=== PATIENT | female | born 1980 | race Caucasian/White ===

== ENCOUNTER 2024-07-03 21:02 | Emergency (ER) | payer MEDICAID, SELFPAY ==
[2024-07-03 21:03] VITALS: BP 110/77; PULSE 82; RESP 16; TEMP 37.1; O2SAT 98
--- NOTE | 2024-07-03 21:16 | RAD_ITS ---
INDICATION: FALL EXAMINATION/TECHNIQUE: X-RAY - LEFT XR Foot Min 3 Views 3 VIEWS COMPARISON: FINDINGS: SOFT TISSUES: No soft tissue swelling or gas. No radiopaque foreign body. BONES/JOINTS: No acute fracture or subluxation.. Normal alignment. Preservation of the joint space.. No sclerotic or destructive changes observed. RAD/Foot min 3 Views IMPRESSION: Negative. Electronically Signed: Ibrahima Sy DO at 23:11 EST ,
--- NOTE | 2024-07-03 22:41 | ED.VIS.LOWEX ---
HPI History of Present Illness Chief Complaint: Lower Extremity Injury Informant: patient and spouse/S.O. Narrative Narrative: Inversion injury left foot 1 hour prior to arrival. Going down steps stepping on her son's toy. No falls or head injuries. No paresthesias. Took Advil prior to arrival. Has crutches at home. Has not tried walking on it. PFSH PFS Home Medications ?Medication ?Instructions ?Recorded ?Last Taken ?Type NK 07/03/24 Unknown History Allergy/AdvReac Type Severity Reaction Status Date / Time No Known Allergies Allergy Verified 07/03/24 21:03 Social History Smoking Status: Unknown if ever smoked ROS ROS ED Constitutional Constitutional ED: Denies fever(s) Cardiovascular Cardiovascular: Denies chest pain Respiratory/Chest Respiratory/Chest: Denies cough Gastrointestinal Gastrointestinal: Denies abdominal pain, diarrhea, nausea or vomiting Musculoskeletal Musculoskeletal: Reports extremity pain Integumentary Denies wounds Neurologic Neurologic: Denies paresthesias EXAM Physical Exam Const Vital Signs: 07/03/24 21:03 Temperature 98.7 F Temperature Source Oral Pulse Rate 82 Respiratory Rate 16 Blood Pressure 110/77 Blood Pressure Mean 88 Pulse Ox 98 Oxygen Delivery Method Room Air Positive well nourished and well developed General Appearance ED: well developed and NAD HEENT Reports moist mucous membranes normocephalic and atraumatic Eyes conjunctivae normal General Eye ED: Yes normal appearance of both eyes Neck full ROM Chest Wall Chest: Negative for tenderness Resp normal respiratory effort and normal air movement Effort and Inspection: symmetric chest movement; Negative for respiratory distress Cardio regular rate, regular rhythm and no murmurs Peripheral Pulses: pulses 2+ throughout GI normal to inspection, nondistended, normoactive bowel sounds and non-tender Palpation: Negative for guarding or rebound tenderness present Back/Spine no CVA tenderness and no thoracic nor lumbar tenderness Extremity Extremity Narrative: Left lower extremity no knee or ankle tenderness. There is bruising swelling around the mid foot. No proximal fifth base tenderness. Skin intact. General Extremety ED: Yes tenderness; Negative for edema General Extremity: Negative for edema Neuro oriented x3 and no sensory deficits noted Sensorium / Orientation: awake and alert Skin no rashes or lesions noted and no wounds MDM MDM MDM Narrative Medical decision making narrative: Interventions / MDM: Differential diagnosis: Foot sprain Diagnosis considered but do not suspect: Fracture however x-ray negative My EKG interpretation: N/A Imaging independently reviewed and interpreted by myself: Three-view x-ray left foot: No fracture noted. External documents reviewed: N/A Test considered but not ordered:N/A ED course: Patient status post Advil at home. Ice was placed. X-ray obtained. Results were negative. Ramiro wrap provided. She has crutches at home. She will continue ibuprofen 600 mg every 6 hours. She continues to ice. Outpatient follow-up. All questions were answered. Re-evaluation: stable Disposition discussed with patient/family/significant other: Patient significant other Case discussed with consulting clinician: N/A This note was generated with [employer] dictation software. It may contain incorrect words, spelling, and punctuation that were not noted in checking the note before signing. Radiography Diagnostic Testing: Clinical Impression(s) from Imaging Studies Foot X-Ray 07/03/24 21:16 IMPRESSION: Negative. Electronically Signed: Ibrahima Sy DO at 23:11 EST Reading Location ID and State: [facility] / [place] Tel [phone], Service support , Discharge Plan Triage Chief Complaint: Lower Extremity Injury ED Provider: Julius Calles Dx/Rx/DC Orders Clinical Impression: Sprain of left foot, Injury of foot, left Instructions: ED Foot Sprain Prescriptions: No Action NK Primary Care Provider: Care Physician,No Primary Activity Restrictions/Additional Instructions: X-ray negative for fracture. Ramiro wrap for support. Continue ice. Continue Advil up to 600 mg every 6 hours as needed. Use your crutches at home as needed. Follow-up with your doctor. Print Language: Moroccan Disposition Disposition: Home, Self Care Discharge Date/Time: 07/03/24 22:52
== END 2024-07-03 22:52 | disposition home or self-care (01) ==
PROVIDERS: Emergency Provider Emergency Medicine; Referring Provider Emergency Medicine; Visit Provider Emergency Medicine
DX: S93.602A Unspecified sprain of left foot, initial encounter (principal); X58.XXXA Exposure to other specified factors, initial encounter
CPT/HCPCS: 73630; 99282

== ENCOUNTER 2025-07-26 10:29 | Emergency (ER) | payer SELFPAY ==
[2025-07-26 10:30] VITALS: BP 128/117; PULSE 86; RESP 16; TEMP 36.4; O2SAT 99; BMI 31.0
[2025-07-26] MEDS: 0.9% Normal Saline (1000mL) 1,000 ML 999 ML IV (10:46)
--- NOTE | 2025-07-26 10:46 | EX.ED.DYSGE1 ---
HPI History of Present Illness Chief Complaint: Nausea/Vomiting/Diarrhea Informant: patient and spouse/S.O. Narrative Narrative: 45-year-old female presenting to the emergency room with a chief complaint of vomiting diarrhea. Patient states she is on day 6 of her illness. She states that most family members have had 24 hours or so of vomiting diarrhea and then they improve. States that she continues to have symptoms particularly in the mornings. She states she has been trying to drink plenty of fluids and has been urinating. No reported fevers or rashes. She describes the diarrhea as green and brown liquidy. No blood in vomit or stool. She states that this morning she continues to have symptoms and feels globally weak. She denies any recent travel. No known bad food exposures. No recent antibiotics. She denies any abdominal surgeries. She currently takes no medications. PFSH PFSH Home Medications ?Medication ?Instructions ?Recorded ?Last Taken ?Type ciprofloxacin HCl 500 mg tablet 500 mg PO BID #10 TABLETS 07/26/25 Unknown Rx ondansetron 4 mg disintegrating 4 mg PO Q6H PRN PRN Nausea #15 tabs 07/26/25 Unknown Rx tablet Allergy/AdvReac Type Severity Reaction Status Date / Time No Known Allergies Allergy Verified 07/26/25 10:31 Social History Smoking Status: Current every day smoker tobacco type: cigarettes ROS ROS ED ROS Narrative Generalized weakness Constitutional Constitutional ED: Denies chills, fever(s) or weight loss Eyes Eyes: Denies change in vision or diplopia ENT ENT ED: Denies ear pain, rhinorrhea or sore throat Cardiovascular Cardiovascular: Denies chest pain, orthopnea, palpitations or racing heartbeat Respiratory/Chest Respiratory/Chest: Denies cough, dyspnea or orthopnea Gastrointestinal Gastrointestinal: Reports diarrhea, nausea, vomiting and other Details: Abdominal cramping Genitourinary Genitourinary ED: Denies dysuria, hematuria or urinary frequency Musculoskeletal Musculoskeletal: Denies arthralgias or myalgias Integumentary Denies abscess or rash Neurologic Neurologic: Denies headache(s) or weakness Psychiatric Psychiatric: Denies anxiety, depression, suicidal ideation or suicidal thoughts Endocrine Endocrinology: Denies polydipsia, polyphagia or polyuria Allergic/Immunologic Allergic/Immunologic ED: Denies mouth swelling, tongue swelling or urticaria EXAM Physical Exam Const Vital Signs: 07/26/25 10:30 07/26/25 11:30 07/26/25 13:52 Temperature 97.6 F L Temperature Source Temporal Pulse Rate 86 64 Respiratory Rate 16 18 Blood Pressure 128/117 H 128/76 H 123/78 H Blood Pressure Mean 120 93 93 Pulse Ox 99 98 Oxygen Delivery Method Room Air Room Air 07/26/25 13:52 Temperature 98.7 F Temperature Source Pulse Rate 97 Respiratory Rate 18 Blood Pressure 134/78 H Blood Pressure Mean 96 Pulse Ox 99 Oxygen Delivery Method Positive well nourished and well developed General Appearance ED: well developed and NAD HEENT Reports normocephalic, head/scalp atraumatic and moist mucous membranes Eyes PERRL and EOMs intact bilaterally Neck no lymphadenopathy, supple and no JVD Resp normal respiratory effort and clear to auscultation bilaterally Cardio regular rate, regular rhythm and no murmurs GI GI Narrative: Mild tenderness to palpation diffusely in the abdomen without guarding or rebound. The abdomen is soft. Hyperactive bowel sounds are heard Inspection: Negative for abdominal distention Auscultation: hyperactive bowel sounds Palpation: soft and tender; Negative for guarding or rebound tenderness present Back/Spine no CVA tenderness and normal ROM Extremity normal to inspection General Extremety ED: Negative for edema General Extremity: Negative for edema Neuro oriented x3 and CN's II-XII intact bilaterally Sensorium / Orientation: alert Motor Exam: strength 5/5 throughout Psych Mood & Affect: tearful; Negative for depressed Skin no rashes or lesions noted and no wounds MDM MDM MDM Narrative Medical decision making narrative: Differential diagnosis includes but not limited to gastroenteritis colitis dehydration electrolyte abnormalities acute kidney injury hepatitis Basic blood work is obtained shows a white count of 11 hemoglobin 14.9 platelet count of 299 creatinine 0.93. AST is 35 ALT of 37 lipase 29 test negative. Patient received IV fluids and Zofran. She was able to produce a stool specimen. This is positive for fecal leukocytes. Enteric pathogen panel will not be run during the patient's ED stay. Patient is doing overall better. I will write for Zofran to muscle and place her on ciprofloxacin for the next 5 days. Patient to return if worsening or concerns encouraged oral hydration History & Record Review Discussion w/independent historian: Patient and Family Lab Data Attestation: I reviewed the patient's lab results. Labs: Laboratory Results - last 24 hr 07/26/25 10:45 WBC 11.0 RBC 4.83 Hgb 14.9 Hct 44.6 MCV 92.3 MCH 30.8 MCHC 33.4 RDW Std Deviation 45.9 H RDW Coeff of Ileana 13.5 Plt Count 299 MPV 8.9 Immature Gran % (Auto) 0.400 Neut % (Auto) 68.0 Lymph % (Auto) 20.4 Davison % (Auto) 5.4 Eos % (Auto) 5.4 H Baso % (Auto) 0.4 Absolute Neuts (auto) 7.5 Absolute Lymphs (auto) 2.25 Nucleated RBC % 0 Sodium 141 Potassium 4.5 Chloride 108 H Carbon Dioxide 24.7 Anion Gap 9 BUN 11 Creatinine 0.93 Estim Creat Clear Calc 79.18 Est GFR (MDRD) Non-Af 77 BUN/Creatinine Ratio 11.5 Glucose 111 H Calcium 9.2 Total Bilirubin 0.16 Direct Bilirubin < 0.08 AST 35 H ALT 37 H Alkaline Phosphatase 65 Total Protein 6.9 Albumin 4.3 Globulin 2.7 Lipase 29 Serum , Qual NEGATIVE Discharge Plan Triage Chief Complaint: Nausea/Vomiting/Diarrhea ED Provider: Chace Espinal Dx/Rx/DC Orders Clinical Impression: Gastroenteritis Instructions: Self-Care for Vomiting and Diarrhea Prescriptions: New ciprofloxacin HCl 500 mg tablet 500 mg PO BID Qty: 10 0RF ondansetron 4 mg tablet,disintegrating 4 mg PO Q6H PRN PRN (Reason: Nausea) Qty: 15 0RF Primary Care Provider: Care Physician,No Primary Referrals: Care Physician,No Primary [Primary Care Provider, Medical] Print Language: Zimbabwean Disposition Disposition: Home, Self Care Discharge Date/Time: 07/26/25 13:53
[2025-07-26 10:55] LABS: Hematocrit 44.6 % (37-47); Hemoglobin 14.9 g/dL (12.0-15.0); Immature Granulocytes Count 0.040 X10^3/uL (0.0-0.0); Mean Corp Hgb Conc 33.4 g/dL (32-36); Mean Corpuscular Volume 92.3 fL (81-99); Mean Platelet Vol. 8.9 fl (6.2-12.0); NRBC Flagged by Analyzer 0 % (0-5); Platelet Count 299 K/mm3 (150-450); RBC Distribution Width CV 13.5 % (11.6-14.6); RBC Distribution Width SD 45.9 fl (35.1-43.9); Red Blood Count 4.83 M/mm3 (4.2-5.4); White Blood Count 11.0 K/mm3 (4.4-11.0)
--- OUTSIDE RECORDS SUMMARY | 2025-07-26 11:04 | XMS RPT_ITS | CCD ---
Author Organization [facility] Inform ion [facility] Care Team Providers Care Emergency Vehicle Operations Instructor Name Role Phone Unavailable Primary Care Provider Julius Sotelo Referring Unavailable Julius Calles Attending Unavailable Care Physician, No Primary Primary Care Unava ilable Medications Current Medications Medication Drug Class(es) Dates Sig (Normalized) Sig (Original) benzonatate 100 mg oral capsule (1 source) Non-narcotic Antitussive Start: 06-21-2024 End: 06-28-2024 take 1 capsule by mouth every eight hours as needed benzonatate (TESSALON PERLE) 100 mg capsule Take 1 capsule by mouth three times a day as needed for cough for up to 7 days. 21 capsule 06/21/2024 06/28/2024 Active Problems Problem Classification Problem Date Documented Da te Episodic/Chronic Other lower respiratory disease (1 source) Cough; Translations: [Acute cough] 06-21-2024 Episodic Other upper respiratory infections (1 source) Upper respiratory infection; Translations: [Acute upper respiratory infection, unspecified] 06-21-2024 Episodic Sprains and strains (1 source) Unspecified sprain of left foot, initial encounter; Translations: [Unspecified sprain of left foot, initial encounter] Onset: 07-29-2024 Episodic Results Test Name Value Interpretation Reference Range Facil ity Emergency Department Summary on 07-03-2024 Emergency Department Summary [facility] Medical Records Department [address] [place] [address] Emergency Department Summary 07/03/24 MR#: [id number] Acct: [id number] Name: KRISS TJEADA Rep #: [id number] : 1980 44 From: Julius Shelby PCP: Care Physician,No Primary Status:DEP ER Location: ED HPI History of Present Illness Chief Complaint: Lower Extremity Injury Informant: patient and spouse/S.O. Narrative Narrative: Inversion injury left foot 1 hour prior to arrival. Going down steps stepping on her son's toy. No falls or head injuries. No paresthesias. Took Advil prior to arrival. Has crutches at home. Has not tried walking on it. PFSH PFSH Home Medications ???Medication ???Instructions ???Recorded ???Last Taken ???Type NK 07/03/24 Unknown History Allergy/AdvReac Type Severity Reaction Status Date / Time No Known Allergies Allergy Verified 07/03/24 21:03 Social History Smoking Status: Unknown if ever smoked ROS ROS ED Constitutional Constitutional ED: Denies fever(s) Cardiovascular Cardiovascular: Denies chest pain Respiratory/Chest Respiratory/Chest: Denies cough Gastrointestinal Gastrointestinal: Denies abdominal pain, diarrhea, nausea or vomiting Musculoskeletal Musculoskeletal: Reports extremity pain Integumentary Denies wounds Neurologic Neurologic: Denies paresthesias EXAM Physical Exam Const Vital Signs: 07/03/24 21:03 Temperature 98.7 F Temperature Source Oral Pulse Rate 82 Respiratory Rate 16 Blood Pressure 110/77 Blood Pressure Mean 88 Pulse Ox 98 Oxygen Delivery Method Room Air Positive well nourished and well developed General Appearance ED: well developed and NAD HEENT Reports moist mucous membranes normocephalic and atraumatic Eyes conjunctivae normal General Eye ED: Yes normal appearance of both eyes Neck full ROM Chest Wall Chest: Negative for tenderness Resp normal respiratory effort and normal air movement Effort and Inspection: symmetric chest movement; Negative for respiratory distress Cardio regular rate, regular rhythm and no murmurs Peripheral Pulses: pulses 2+ throughout GI normal to inspection, nondistended, normoactive bowel sounds and non-tender Palpation: Negative for guarding or rebound tenderness present Back/Spine no CVA tenderness and no thoracic nor lumbar tenderness Extremity Extremity Narrative: Left lower extremity no knee or ankle tenderness. There is bruising swelling around the mid foot. No proximal fifth base tenderness. Skin intact. General Extremety ED: Yes tenderness; Negative for edema General Extremity: Negative for edema Neuro oriented x3 and no sensory deficits noted Sensorium / Orientation: awake and alert Skin no rashes or lesions noted and no wounds MDM MDM MDM Narrative Medical decision making narrative: Interventions / MDM: Differential diagnosis: Foot sprain Diagnosis considered but do not suspect: Fracture however x-ray negative My EKG interpretation: N/A Imaging independently reviewed and interpreted by myself: Three-view x-ray left foot: No fracture noted. External documents reviewed: N/A Test considered but not ordered:N/A ED course: Patient status post Advil at home. Ice was placed. X-ray obtained. Results were negative. Ramiro wrap provided. She has crutches at home. She will continue ibuprofen 600 mg every 6 hours. She continues to ice. Outpatient follow-up. All questions were answered. Re-evaluation: stable Disposition discussed with patient/family/signi ficant other: Patient significant other Case discussed with consulting clinician: N/A This note was generated with Cloudadmin dictation software. It may contain incorrect words, spelling, and punctuation that were not noted in checking the note before signing. Radiography Diagnostic Testing: Clinical Impression(s) from Imaging Studies Foot X-Ray 07/03/24 21:16 IMPRESSION: Negative. Electronically Signed: Ibrahima Sy DO at 23:11 EST Reading Location ID and State: [facility] / [place] Tel [phone], Service support , Discharge Plan Triage Chief Complaint: Lower Extremity Injury ED Provider: Julius Calles Dx/Rx/DC Orders Clinical Impression: Sprain of left foot, Injury of foot, left Instructions: ED Foot Sprain Prescriptions: No Action NK Primary Care Provider: Care Physician,No Primary Activity Restrictions/Additio nal Instructions: X-ray negative for fracture. Ramiro wrap for support. Continue ice. Continue Advil up to 600 mg every 6 hours as needed. Use your crutches at home as needed. Follow-up with your doctor. Print Language: Kyrgyz Disposition Disposition: Home, Self Care Discharge (more content not included)... Normal [facility] Foot min 3 Viewson 4 Foot min 3 Views [facility] Imaging Services [address] [place], [place] [id number] Foot min 3 Views MR#: [id number] Acct: [id number] Name: KRISS TEJADA Rep #: [id number] : 1980 F 44 From: Ibrahima Sy DO PCP: Care Physician,No Primary Status: DEP ER Study: Foot min 3 Views Date of Exam: 07/03/24 Exam# [id number] Ordering Dr: Julius Calles DO [id number] INDICATION: FALL EXAMINATION/TECHNIQU E: X-RAY - LEFT XR Foot Min 3 Views 3 VIEWS COMPARISON: ____ FINDINGS: SOFT TISSUES: No soft tissue swelling or gas. No radiopaque foreign body. BONES/JOINTS: No acute fracture or subluxation.. Normal alignment. Preservation of the joint space.. No sclerotic or destructive changes observed. RAD/Foot min 3 Views IMPRESSION: Negative. Electronically Signed: Ibrahima Sy DO at 23:11 EST , CC: Dr. Julius Calles DO; No Primary Care Physician Hot Dip Tinning Supervisor: Signed Normal [facility] CNOVon 06-21-2024 CNOV Office Visit (UCWSTR) KRISS TEJADA ([id number]) 1980 F Date Time Provider Department 06/21/24 1:30 PM BERNARD IBRAHIM [facility] During your visit today, we recorded the following information about you: Temperature Pulse Respiration Blood pressure 97.2 degrees 96/minute 18/minute 102/66 Weight 61.5 kg Bernard Ibrahim APRN.CONTINUOUS WASHER OPERATOR 06/21/2024 1:37 PM Signed Subjective HPI Nontoxic-appearing female presents urgent care chief complaint cough chest congestion fatigue body aches chills. Duration of symptoms 3 days. Associated symptoms listed above. Most prominent symptom today is cough and fatigue. OTC medications none recently. Sick contacts unknown. No chest pain shortness of breath or hemoptysis. Past medical history prescription medications allergies reviewed. Denies chance of . Is not breast-feeding. .Patient presents with: Cough: chest and head congestion, fatigue, bodyaches and chills x 3 days History reviewed. No pertinent past medical history. History reviewed. No pertinent surgical history. ALLERGIES Patient has no known allergies. MEDICATIONS No prescriptions on file. History reviewed. No pertinent family history. BP 102/66 Pulse 96 Temp 36.2 ?C (97.2 ?F) Resp 18 Wt 61.5 kg (135 lb 9.3 oz) SpO2 98% Review of Systems Constitutional: Positive for malaise/fatigue. Negative for chills and fever. HENT: Positive for congestion and sore throat. Negative for ear discharge, ear pain and sinus pain. Eyes: Negative for blurred vision, pain, discharge and redness. Respiratory: Positive for cough. Negative for hemoptysis, sputum production, shortness of breath, wheezing and stridor. Cardiovascular: Negative for chest pain. Gastrointestinal: Negative for abdominal pain, diarrhea, nausea and vomiting. Musculoskeletal: Positive for myalgias. Skin: Negative for itching and rash. Neurological: Positive for headaches. Negative for dizziness. Objective Physical Exam Constitutional: General: She is not in acute distress. Appearance: She is not diaphoretic. HENT: Head: Normocephalic. Jaw: No trismus, tenderness, swelling or pain on movement. Nose: Congestion present. Mouth/Throat: Mouth: Mucous membranes are moist. Pharynx: Oropharynx is clear. Uvula midline. No pharyngeal swelling, oropharyngeal exudate, posterior oropharyngeal erythema or uvula swelling. Eyes: Conjunctiva/sclera: Conjunctivae normal. Pupils: Pupils are equal, round, and reactive to light. Cardiovascular: Rate and Rhythm: Normal rate and regular rhythm. Heart sounds: Normal heart sounds. Pulmonary: Effort: Pulmonary effort is normal. No tachypnea, accessory muscle usage or respiratory distress. Breath sounds: Normal breath sounds. No stridor. No wheezing, rhonchi or rales. Abdominal: General: There is no distension. Palpations: Abdomen is soft. Tenderness: There is no abdominal tenderness. There is no guarding or rebound. Musculoskeletal: Cervical back: Normal range of motion and neck supple. No edema, erythema, rigidity or tenderness. No pain with movement. Normal range of motion. Lymphadenopathy: Cervical: No cervical adenopathy. Skin: General: Skin is warm and dry. Neurological: Mental Status: She is alert and oriented to person, place, and time. ASSESSMENT/PLAN: 1. Acute cough - ICD9: 786.2, ICD10: R05.1 (primary diagnosis) - XR CHEST 2V FRONTAL/LAT 2. URI with cough and congestion - ICD9: 465.9, ICD10: J06.9 - Discussed viral etiology and rationale for treatment. - Symptomatic treatment with prn analgesia - Supportive care with fluids and rest Patient was educated on supportive therapies. Patient will follow up with primary care provider as needed. Patient was instructed to immediately proceed to emergency room for any new, worsening, or symptoms lasting longer than anticipated. The patient's clinical presentation is otherwise unremarkable at this time. Based on exam and clinical finding, the patient is stable for discharge. Plan of care was discussed with patient. Patient verbalizes understanding and agrees to plan of care. This note was generated using Cloudadmin software. It may contain errors in wording, punctuation, or spelling. Bernard Ibrahim APRN.CONTINUOUS WASHER OPERATOR Allergies As of Date: 06/21/2024 (No Known Allergies) Date Reviewed: 06/21/2024 Reviewed by: Bernard Ibrahim APRN.CONTINUOUS WASHER OPERATOR - Fully Assessed Reason for Visit: Cough [28] Cmt: chest and head congestion, fatigue, bodyaches and chills x 3 days Primary Visit Diagnosis:Acute cough [R05.1] Other Visit Diagnosis:URI with cough and congestion [J06.9] Order(s):XR CHEST 2V FRONTAL/LAT [[id number]] Order #: [id number] FUTURE benzonatate (TESSALON PERLE) 100 mg capsuleTake 1 capsule by mouth three times a day as needed for cough for up to 7 days.Disp: 21 capsuleRfl: 0 Prescriptions as of (more content not included)... Normal [facility] .Auto Diffon 02-17-2021 Basophil, Absolute 0.10 10 3/mcL Normal 0.00-0.27 [facility] ([place]) Comment on above: Performed By: #### L IPID, ADIFF, BMP, CBC, ANEU, TSH, GFR #### [address] [address] Basophils/100 WBC (Bld) 1.0 % Normal 0.0-2.5 [facility] ([place]) Comment on above: Performed By: #### L IPID, ADIFF, BMP, CBC, ANEU, TSH, GFR #### [address] [address] Eosinophil, Absolute 0.10 10 3/mcL Normal 0.00-0.65 [facility] ([place]) Comment on above: Performed By: #### L IPID, ADIFF, BMP, CBC, ANEU, TSH, GFR #### [address] [address] Eosinophils/100 WBC (Bld) 1.1 % Normal 0.0-6.0 [facility] ([place]) Comment on above: Performed By: #### L IPID, ADIFF, BMP, CBC, ANEU, TSH, GFR #### [address] [address] Lymphocyte, Absolute 2.30 10 3/mcL Normal 0.90-4.32 [facility] ([place]) Comment on above: Performed By: #### L IPID, ADIFF, BMP, CBC, ANEU, TSH, GFR #### [address] [address] Lymphocytes/100 WBC (Bld) 24.8 % Normal 20.0-40.0 [facility] ([place]) Comment on above: Performed By: #### L IPID, ADIFF, BMP, CBC, ANEU, TSH, GFR #### [address] [address] Monocyte, Absolute 0.50 10 3/mcL Normal 0.09-1.40 [facility] ([place]) Comment on above: Performed By: #### L IPID, ADIFF, BMP, CBC, ANEU, TSH, GFR #### [address] [address] Monocytes/100 WBC (Bld) 5.8 % Normal 2.0-13.0 [facility] ([place]) Comment on above: Performed By: #### L IPID, ADIFF, BMP, CBC, ANEU, TSH, GFR #### [address] [address] Neutrophils/100 WBC (Bld) 67.3 % Normal 50.0-75.0 [facility] ([place]) Comment on above: Performed By: #### L IPID, ADIFF, BMP, CBC, ANEU, TSH, GFR #### [address] [address] .GFRon 02-17-2021 GFR >60 Normal [facility] ([place]) Comment on above: Result Comment: GFR Population mean for , Non- Americans Ages 20-29 = 116 mL/min/1.73 sq.m. Ages 30-39 = 107 mL/min/1.73 sq.m. Ages 40-49 = 99 mL/min/1.73 sq.m. Ages 50-59 = 93 mL/min/1.73 sq.m. Ages 60-69 = 85 mL/min/1.73 sq.m. Ages 70+ = 75 mL/min/1.73 sq.m. Chronic Kidney Disease: Less than 60 mL/min/1.73 square meters End Stage Renal Disease: Less than 15 mL/min/1.73 square meters Performed By: #### L IPID, ADIFF, BMP, CBC, ANEU, TSH, GFR #### [address] [address] GFR Non- 59 ml/min/1.73sqm Normal [facility] ([place]) Comment on above: Result Comment: GFR Population mean for , Non- Americans Ages 20-29 = 116 mL/min/1.73 sq.m. Ages 30-39 = 107 mL/min/1.73 sq.m. Ages 40-49 = 99 mL/min/1.73 sq.m. Ages 50-59 = 93 mL/min/1.73 sq.m. Ages 60-69 = 85 mL/min/1.73 sq.m. Ages 70+ = 75 mL/min/1.73 sq.m. Chronic Kidney Disease: Less than 60 mL/min/1.73 square meters End Stage Renal Disease: Less than 15 mL/min/1.73 square meters Performed By: #### L IPID, ADIFF, BMP, CBC, ANEU, TSH, GFR #### [address] [address] .NEUABSon 02-17-2021 Neutrophil, Absolute 6.20 10 3/mcL Normal 2.25-8.10 [facility] ([place]) Comment on above: Performed By: #### L IPID, ADIFF, BMP, CBC, ANEU, TSH, GFR #### [place] [id number] BMPon 02-17-2021 BUN/Creatinine Ratio 12.6 ratio Normal 10.0-22.0 [facility] ([place]) Comment on above: Performed By: #### L IPID, ADIFF, BMP, CBC, ANEU, TSH, GFR #### [place] [address] Calcium [Mass/Vol] 9.7 mg/dL Normal 8.7-10.4 [facility] ([place]) Comment on above: Result Comment: No te - New Reference Range in effect 20 Performed By: #### L IPID, ADIFF, BMP, CBC, ANEU, TSH, GFR #### [place] [address] Chloride [Moles/Vol] 110 mmol/L Normal 98-110 [facility] ([place]) Comment on above: Performed By: #### L IPID, ADIFF, BMP, CBC, ANEU, TSH, GFR #### [address] [address] CO2 [Moles/Vol] 28 mmol/L Normal 22-32 [facility] ([place]) Comment on above: Performed By: #### L IPID, ADIFF, BMP, CBC, ANEU, TSH, GFR #### [place] [id number] Creatinine [Mass/Vol] 1.03 mg/dL Normal 0.50-1.20 [facility] ([place]) Comment on above: Performed By: #### L IPID, ADIFF, BMP, CBC, ANEU, TSH, GFR #### [address] [address] Electrolyte Balance 4.0 mEq/L Normal 4.0-15.0 [facility] ([place]) Comment on above: Performed By: #### L IPID, ADIFF, BMP, CBC, ANEU, TSH, GFR #### [place] [id number] Glucose [Mass/Vol] 87 mg/dL Normal 70-110 [facility] ([place]) Comment on above: Performed By: #### L IPID, ADIFF, BMP, CBC, ANEU, TSH, GFR #### [place] [id number] Potassium [Moles/Vol] 4.0 mmol/L Normal 3.5-5.0 [facility] ([place]) Comment on above: Result Comment: Spec imen slightly hemolyzed. Performed By: #### L IPID, ADIFF, BMP, CBC, ANEU, TSH, GFR #### [place] [id number] Sodium [Moles/Vol] 142 mmol/L Normal 136-145 [facility] ([place]) Comment on above: Performed By: #### L IPID, ADIFF, BMP, CBC, ANEU, TSH, GFR #### [place] [id number] Urea nitrogen [Mass/Vol] 13.0 mg/dL Normal 8.0-22.0 [facility] ([place]) Comment on above: Performed By: #### L IPID, ADIFF, BMP, CBC, ANEU, TSH, GFR #### [place] [id number] CBCon 02-17-2021 Erythrocyte distribution width (RBC) [Ratio] 14.2 % Normal 11.5-15.5 [facility] ([place]) Comment on above: Performed By: #### L IPID, ADIFF, BMP, CBC, ANEU, TSH, GFR #### [place] [address] Hematocrit (Bld) [Volume fraction] 38.9 % Normal 34.0-46.0 [facility] ([place]) Comment on above: Performed By: #### L IPID, ADIFF, BMP, CBC, ANEU, TSH, GFR #### [place] [address] Hgb 13.2 G/dL Normal 12.0-16.0 [facility] ([place]) Comment on above: Performed By: #### L IPID, ADIFF, BMP, CBC, ANEU, TSH, GFR #### [place] [address] MCH (RBC) [Entitic mass] 31.1 pg Normal 27.0-33.0 [facility] ([place]) Comment on above: Performed By: #### L IPID, ADIFF, BMP, CBC, ANEU, TSH, GFR #### [place] [address] MCHC 33.9 G/dL Normal 32.0-36.0 [facility] ([place]) Comment on above: Performed By: #### L IPID, ADIFF, BMP, CBC, ANEU, TSH, GFR #### [place] [address] MCV (RBC) [Entitic vol] 91.7 fL Normal 80.0-99.0 [facility] ([place]) Comment on above: Performed By: #### L IPID, ADIFF, BMP, CBC, ANEU, TSH, GFR #### [place] [address] Platelet 285 10 3/mcL Normal 150-450 [facility] ([place]) Comment on above: Performed By: #### L IPID, ADIFF, BMP, CBC, ANEU, TSH, GFR #### [place] [address] Platelet mean volume (Bld) [Entitic vol] 8.7 fL Normal 6.6-10.5 [facility] ([place]) Comment on above: Performed By: #### L IPID, ADIFF, BMP, CBC, ANEU, TSH, GFR #### [address] [address] RBC 4.25 10 6/mcL Normal 4.10-5.30 [facility] ([place]) Comment on above: Performed By: #### L IPID, ADIFF, BMP, CBC, ANEU, TSH, GFR #### [place] [id number] WBC 9.20 10 3/mcL Normal 4.50-10.80 [facility] ([place]) Comment on above: Performed By: #### L IPID, ADIFF, BMP, CBC, ANEU, TSH, GFR #### [place] [address] LIPIDon 02-17-2021 Cholesterol [Mass/Vol] 172 mg/dL Normal 50-199 [facility] ([place]) Comment on above: Result Comment: Chol esterol Reference Interval: Less than 200 Desirable 200-239 Borderline high risk 240 and above High risk Performed By: #### L IPID, ADIFF, BMP, CBC, ANEU, TSH, GFR #### [place] [address] Cholesterol in HDL [Mass/Vol] 54 mg/dL Normal 40-59 [facility] ([place]) Comment on above: Performed By: #### L IPID, ADIFF, BMP, CBC, ANEU, TSH, GFR #### [place] [address] Cholesterol in LDL [Mass/Vol] 108 mg/dL Normal 0-129 [facility] ([place]) Comment on above: Performed By: #### L IPID, ADIFF, BMP, CBC, ANEU, TSH, GFR #### [place] [address] Triglyceride [Mass/Vol] 48 mg/dL Normal 3-149 [facility] ([place]) Comment on above: Performed By: #### L IPID, ADIFF, BMP, CBC, ANEU, TSH, GFR #### [address] [address] TSHon 02-17-2021 TSH 0.929 mIU/mL Normal 0.550-4.780 [facility] ([place]) Comment on above: Result Comment: No te - New Reference Range in effect 20 Performed By: #### L IPID, ADIFF, BMP, CBC, ANEU, TSH, GFR #### [facility] [address] [place] [address] Vital Signs Date Time Vital Sign Value Performing Clinician Jesus travis 06-21-2024 13:25-0500 Body temperature 97.2 [degF] Bernard Ibarhim TEXTILE CLOTHING AND FOOTWEAR MECHANIC.CONTINUOUS WASHER OPERATOR Work Phone: [facility] 06-21-2024 13:25-0500 Body weight 61.5 kg Bernardroland Ibrahim TEXTILE CLOTHING AND FOOTWEAR MECHANIC.CONTINUOUS WASHER OPERATOR Work Phone: [facility] 06-21-2024 13:25-0500 Diastolic blood pressure 66 mm[Hg] Bernard Ibrahim TEXTILE CLOTHING AND FOOTWEAR MECHANIC.CONTINUOUS WASHER OPERATOR Work Phone: [facility] 06-21-2024 13:25-0500 Heart rate 96 /min Bernard Ibrahim TEXTILE CLOTHING AND FOOTWEAR MECHANIC.CONTINUOUS WASHER OPERATOR Work Phone: [facility] 06-21-2024 13:25-0500 Respiratory rate 18 /min Bernardroland Ibrahim TEXTILE CLOTHING AND FOOTWEAR MECHANIC.CONTINUOUS WASHER OPERATOR Work Phone: [facility] 06-21-2024 13:25-0500 SaO2% (BldA) [Mass fraction] 98 % Bernard Ibrahim TEXTILE CLOTHING AND FOOTWEAR MECHANIC.CONTINUOUS WASHER OPERATOR Work Phone: [facility] 06-21-2024 13:25-0500 Systolic blood pressure 102 mm[Hg] Bernard Ibrahim TEXTILE CLOTHING AND FOOTWEAR MECHANIC.CONTINUOUS WASHER OPERATOR Work Phone: [facility] Encounters Encounter Date Encounter Type Care Provider Facility Start: 07-03-2024 End: 07-03-2024 Emergency department patient visit Julius Calles Facility:[facility] Start: 06-21-2024 End: 06-21-2024 ambulatory Facility:[facility] Start: 06-21-2024 End: 06-21-2024 Office outpatient new 20 minutes Bernard Ibrahim TEXTILE CLOTHING AND FOOTWEAR MECHANIC.CONTINUOUS WASHER OPERATOR Work Phone: [facility] Comment on above: Acute cough (Primary Dx); URI with cough and congestion Plan of Treatment Date Care Activity Detail Author Start: 06-28-2024 End: 07-21-2025 XR Chest PA and Lateral XR CHEST 2V FRONTAL/LAT Radiology STAT Acute cough Expected: 06/28/2024, Expires: 07/21/2025 [facility] Work Phone: Comment on above: Expected: 06/28/2024 , Expires: 07/21/2025 Start: 03-30-2024 Covid-19 Vaccine ( season) Covid-19 Vaccine ( season) [facility] Start: 03-30-2024 Influenza vaccination Influenza Vacc ine (#1) [facility] Start: 2020 Screening for malign ant neoplasm of breast Mammogram Screening [facility] Start: 2001 Screening for malign ant neoplasm of cervix Cervical Cancer Screening [facility] Start: 1999 Hepatitis B Vaccine (1 of 3 - 19+ 3-dose series) Hepatitis B Vaccine (1 of 3 - 19+ 3-dose series) [facility] Start: 1999 Urine microalbumin profile DTaP,Tdap,Td Vaccine (1 - Tdap) [facility] Start: 1998 Anxiety Screening Anxiety Screening [facility] Start: 1998 Depression Screening Depression Scre ening [facility] Start: 1998 Hepatitis C screening Hepatitis C Sc reening [facility] Start: 1998 HIV screening HIV Screening [facility] Payers Date Payer Category Payer Self-pay 2024 Unknown [id number] 2024 Medicaid [place] [employer] [employer] [id number] 2024-Present [phone] [address] [place] [address] Medicaid [id number] 2024 Medicaid [id number] Unknown [id number] Social History Date Type Detail Facility Tobacco smoking stat RUSTIS Tobacco smoking consumption unknown [facility] Start: 1980 Sex assigned at Not on file [facility] Gender identity Not on file [facility] inic Progress note 06-21-2024 Note Date & Type Note Facility 06-21-2024 Note HNO ID: [id number] Author: BERNARD IBRAHIM APRN.CONTINUOUS WASHER OPERATOR Service: ? Author Type: Nurse Practitioner Type: Progress Notes Filed: 06/21/2024 13:37 Note Text: Subjective HPI Nontoxic-appearing female presents urgent care chief complaint cough chest congestion fatigue body aches chills. Duration of symptoms 3 days. Associated symptoms listed above. Most prominent symptom today is cough and fatigue. OTC medications none recently. Sick contacts unknown. No chest pain shortness of breath or hemoptysis. Past medical history prescription medications allergies reviewed. Denies chance of . Is not breast-feeding. .Patient presents with: Cough: chest and head congestion, fatigue, bodyaches and chills x 3 days History reviewed. No pertinent past medical history. History reviewed. No pertinent surgical history. ALLERGIES Patient has no known allergies. MEDICATIONS No prescriptions on file. History reviewed. No pertinent family history. BP 102/66 Pulse 96 Temp 36.2 ?C (97.2 ?F) Resp 18 Wt 61.5 kg (135 lb 9.3 oz) SpO2 98% Review of Systems Constitutional: Positive for malaise/fatigue. Negative for chills and fever. HENT: Positive for congestion and sore throat. Negative for ear discharge, ear pain and sinus pain. Eyes: Negative for blurred vision, pain, discharge and redness. Respiratory: Positive for cough. Negative for hemoptysis, sputum production, shortness of breath, wheezing and stridor. Cardiovascular: Negative for chest pain. Gastrointestinal: Negative for abdominal pain, diarrhea, nausea and vomiting. Musculoskeletal: Positive for myalgias. Skin: Negative for itching and rash. Neurological: Positive for headaches. Negative for dizziness. Objective Physical Exam Constitutional: General: She is not in acute distress. Appearance: She is not diaphoretic. HENT: Head: Normocephalic. Jaw: No trismus, tenderness, swelling or pain on movement. Nose: Congestion present. Mouth/Throat: Mouth: Mucous membranes are moist. Pharynx: Oropharynx is clear. Uvula midline. No pharyngeal swelling, oropharyngeal exudate, posterior oropharyngeal erythema or uvula swelling. Eyes: Conjunctiva/sclera: Conjunctivae normal. Pupils: Pupils are equal, round, and reactive to light. Cardiovascular: Rate and Rhythm: Normal rate and regular rhythm. Heart sounds: Normal heart sounds. Pulmonary: Effort: Pulmonary effort is normal. No tachypnea, accessory muscle usage or respiratory distress. Breath sounds: Normal breath sounds. No stridor. No wheezing, rhonchi or rales. Abdominal: General: There is no distension. Palpations: Abdomen is soft. Tenderness: There is no abdominal tenderness. There is no guarding or rebound. Musculoskeletal: Cervical back: Normal range of motion and neck supple. No edema, erythema, rigidity or tenderness. No pain with movement. Normal range of motion. Lymphadenopathy: Cervical: No cervical adenopathy. Skin: General: Skin is warm and dry. Neurological: Mental Status: She is alert and oriented to person, place, and time. ASSESSMENT/PLAN: 1. Acute cough - ICD9: 786.2, ICD10: R05.1 (primary diagnosis) - XR CHEST 2V FRONTAL/LAT 2. URI with cough and congestion - ICD9: 465.9, ICD10: J06.9 - Discussed viral etiology and rationale for treatment. - Symptomatic treatment with prn analgesia - Supportive care with fluids and rest Patient was educated on supportive therapies. Patient will follow up with primary care provider as needed. Patient was instructed to immediately proceed to emergency room for any new, worsening, or symptoms lasting longer than anticipated. The patient's clinical presentation is otherwise unremarkable at this time. Based on exam and clinical finding, the patient is stable for discharge. Plan of care was discussed with patient. Patient verbalizes understanding and agrees to plan of care. This note was generated using Cloudadmin software. It may contain errors in wording, punctuation, or spelling. Bernard Ibrahim APRN.AYANNA [facility] History of Present illness Narrative 06-21-2024 Bernard Ibrahim APRN.AYANNA - 06/21/2024 1:34 PM EST Note Date & Type Note Facility 06-21-2024 History of Presen t illness Narrative Subjective HPI Nontoxic-appearing female presents urgent care chief complaint cough chest congestion fatigue body aches chills. Duration of symptoms 3 days. Associated symptoms listed above. Most prominent symptom today is cough and fatigue. OTC medications none recently. Sick contacts unknown. No chest pain shortness of breath or hemoptysis. Past medical history prescription medications allergies reviewed. Denies chance of . Is not breast-feeding. .Patient presents with: Cough: chest and head congestion, fatigue, bodyaches and chills x 3 days History reviewed. No pertinent past medical history. History reviewed. No pertinent surgical history. ALLERGIES Patient has no known allergies. MEDICATIONS No prescriptions on file. History reviewed. No pertinent family history. BP 102/66 Pulse 96 Temp 36.2 C (97.2 F) Resp 18 Wt 61.5 kg (135 lb 9.3 oz) SpO2 98% Review of Systems Constitutional: Positive for malaise/fatigue. Negative for chills and fever. HENT: Positive for congestion and sore throat. Negative for ear discharge, ear pain and sinus pain. Eyes: Negative for blurred vision, pain, discharge and redness. Respiratory: Positive for cough. Negative for hemoptysis, sputum production, shortness of breath, wheezing and stridor. Cardiovascular: Negative for chest pain. Gastrointestinal: Negative for abdominal pain, diarrhea, nausea and vomiting. Musculoskeletal: Positive for myalgias. Skin: Negative for itching and rash. Neurological: Positive for headaches. Negative for dizziness. Objective Physical Exam Constitutional: General: She is not in acute distress. Appearance: She is not diaphoretic. HENT: Head: Normocephalic. Jaw: No trismus, tenderness, swelling or pain on movement. Nose: Congestion present. Mouth/Throat: Mouth: Mucous membranes are moist. Pharynx: Oropharynx is clear. Uvula midline. No pharyngeal swelling, oropharyngeal exudate, posterior oropharyngeal erythema or uvula swelling. Eyes: Conjunctiva/sclera: Conjunctivae normal. Pupils: Pupils are equal, round, and reactive to light. Cardiovascular: Rate and Rhythm: Normal rate and regular rhythm. Heart sounds: Normal heart sounds. Pulmonary: Effort: Pulmonary effort is normal. No tachypnea, accessory muscle usage or respiratory distress. Breath sounds: Normal breath sounds. No stridor. No wheezing, rhonchi or rales. Abdominal: General: There is no distension. Palpations: Abdomen is soft. Tenderness: There is no abdominal tenderness. There is no guarding or rebound. Musculoskeletal: Cervical back: Normal range of motion and neck supple. No edema, erythema, rigidity or tenderness. No pain with movement. Normal range of motion. Lymphadenopathy: Cervical: No cervical adenopathy. Skin: General: Skin is warm and dry. Neurological: Mental Status: She is alert and oriented to person, place, and time. ASSESSMENT/PLAN: 1. Acute cough - ICD9: 786.2, ICD10: R05.1 (primary diagnosis) - XR CHEST 2V FRONTAL/LAT 2. URI with cough and congestion - ICD9: 465.9, ICD10: J06.9 - Discussed viral etiology and rationale for treatment. - Symptomatic treatment with prn analgesia - Supportive care with fluids and rest Patient was educated on supportive therapies. Patient will follow up with primary care provider as needed. Patient was instructed to immediately proceed to emergency room for any new, worsening, or symptoms lasting longer than anticipated. The patient's clinical presentation is otherwise unremarkable at this time. Based on exam and clinical finding, the patient is stable for discharge. Plan of care was discussed with patient. Patient verbalizes understanding and agrees to plan of care. This note was generated using Cloudadmin software. It may contain errors in wording, punctuation, or spelling. Bernard Ibrahim APRN.[employer] documented in this encounter [facility] Evaluation note Note Date & Type Note Facility Evaluation note Diagnosis Acute cough- Primary URI with cough and congestion documented in this encounter [facility] Summary Purpose Family History No Family History Records FoundNo Family History Records FoundNo Family History Records Found Advance Directives No Advanced Directives Records FoundNo Advanced Directives Records FoundNo Advanced Directives Records Found Additional Source Comments INFORMATION SOURCE (unrecogn ized section and content) DATE CREATED AUTHOR 03/11/[address] [facility] DATE CREATED AUTHOR AUTHOR'S ORGANIZ ATION 06/24/2024 [facility] DATE CREATED AUTHOR AUTHOR'S ORGANIZ ATION 07/31/2024 [facility] Source Comments (unrecognize d section and content) In the event this informatio n is protected by the Federal Confidentiality of Alcohol and Drug Abuse Patient Records regulations: The Federal rules restrict any use of the information to criminally investigate or prosecute any alcohol or drug abuse patient.[facility] Reason for Visit (unrecogniz ed section and content) Reason Comments Cough chest and head conge stion, fatigue, bodyaches and chills x 3 days FOR RECORDS PERTAINING TO PATIENTS WHO ARE OR HAVE BEEN ENROLLED IN A CHEMICAL DEPENDENCY/SUBSTANCEABUSE PROGRAM, SOME INFORMATION MAY BE OMITTED. This clinical summary was aggregated from multiple sources. Caution should be exercised in using it in the provision of clinical care. This summary normalizes information from multiple sources, and as a consequence, information in this document may materially change the coding, format and clinical context of patient data. In addition, data may be omitted in some cases. CLINICAL DECISIONS SHOULD BE BASED ON THE PRIMARY CLINICAL RECORDS. [employer] [facility]. provides no warranty or guarantee of the accuracy or completeness of information in this document.
[2025-07-26 11:05] LABS: Internal QC Validated? YES +Cl - CLEAR BKGD; Pregnancy, Serum, hCG Quali. NEGATIVE Negative
[2025-07-26 11:14] LABS: Lipase 29 U/L (13-75)
[2025-07-26 11:16] LABS: AST(SGOT) 35 U/L (<=31); Alanine Aminotransfer ALT/SGPT 37 U/L (<=34); Albumin, Serum 4.3 g/dL (3.5-5.0); Alkaline Phosphatase 65 U/L (35-104); Anion Gap 9 (7-18); BUN 11 mg/dL (4-19); BUN/Creat Ratio 11.5 RATIO (10-20); Bilirubin, Direct < 0.08 mg/dL (0.00-0.30); Calcium,Total 9.2 mg/dL (7.6-11.0); Carbon Dioxide 24.7 mmol/L (20.0-29.0); Chloride 108 mmol/L (96-106); Estimated Creatinine Clearance 79.18 ml/min (50-250); Globulin 2.7 g/dL (2.2-4.2); Glucose 111 mg/dL (70-99); Potassium 4.5 mmol/L (3.5-5.1)
[2025-07-26 11:30] VITALS: BP 128/76
[2025-07-26 13:52] VITALS: BP 123/78; BP 134/78; PULSE 64; PULSE 97; RESP 18; TEMP 37.1; O2SAT 98; O2SAT 99
== END 2025-07-26 13:53 | disposition home or self-care (01) ==
PROVIDERS: Emergency Provider Emergency Medicine; Visit Provider Emergency Medicine
DX: K52.9 Noninfective gastroenteritis and colitis, unspecified (principal); F17.210 Nicotine dependence, cigarettes, uncomplicated
CPT/HCPCS: 80048; 80076; 83630; 83690; 84703; 85025; 87177; 87209; 87493; 87506; 96361; 96374; 96376; 99282; A4216; J2405